=== PATIENT | female | born 1965 | race Caucasian/White ===

== ENCOUNTER 2023-05-27 14:55 | Outpatient (AMB) | payer OTHER, SELFPAY ==
--- NOTE | 2023-05-27 14:56 | AM.OFFWIN_ITS ---
Intake Vital Signs 05/27/23 15:00 Height 5 ft 4 in Weight 188 lb 8 oz BMI 32.4 BP 122/80 Blood Pressure Location Rt brachial Position Sitting Pulse 118 H Pulse Source Pulse Oximeter Temp 97.8 F Temp Source Temporal Artery Scan Pulse Oximetry (%) 98 Oxygen Delivery Method Room Air Intake Visit Reasons: HEAD PAPER TESTER, bump/redness on right side of cheek Intake Note: pt is here for c/o bump with redness on right side of cheek Patient Tobacco Use Status: Never used Tobacco Allergies No Known Allergies Allergy (Verified 05/27/23 15:25) Medication List - Last Reconciled 05/27/23 by Brant Palma MD atorvastatin 40 mg PO DAILY Do you need a note to return to daycare/school/sports/work: Yes HPI HEAD PAPER TESTER, bump/redness on right side of cheek HPI Details 57-year-old male presents to the office for a sick visit. Patient reports a swelling and redness on the right cheek. She always had a pimple which has gotten infected. Symptoms started a few days ago. PFSH Social History Patient Tobacco Use Status: Never used Tobacco Physical Exam Vital Signs: Last Vital Signs Temp 97.8 F 05/27/23 15:00 Pulse 118 H 05/27/23 15:00 BP 122/80 05/27/23 15:00 Pulse Ox 98 05/27/23 15:00 Oxygen Delivery Method Room Air 05/27/23 15:00 BMI result Body Mass Index 32.4 Skin Other: Right cheek: Erythematous area over the cheek with central hyperemic area, tender to touch Assessment & Plan Assessment & Plan (1) Cellulitis, face: Code(s): L03.211 - Cellulitis of face Plan: Antibiotic called in. If symptoms do not improve to follow-up here. Coding Level of Care Code Est Pt Level 3 (41812) Diagnoses Cellulitis, face L03.211
[2023-05-27 15:00] VITALS: BP 122/80; PULSE 118; TEMP 36.6; O2SAT 98; BMI 32.4
== END 2023-05-27 15:28 | disposition home or self-care (01) ==
PROVIDERS: Visit Provider Internal Medicine
DX: L03.211 Cellulitis of face (principal)
CPT/HCPCS: 99213